=== PATIENT | male | born 1990 | race Hispanic/Latino ===

== ENCOUNTER 2024-07-16 18:15 | Emergency (ER) | payer MEDICAID ==
[2024-07-16 19:53] LABS: BASOPHILS ABSOLUTE AUTO 0.11 K/uL (0.00-0.20); BASOPHILS PERCENT AUTO 1.7 % (0.0-1.0); EOSINOPHILS ABSOLUTE AUTO 0.15 K/uL (0.00-0.45); EOSINOPHILS PERCENT AUTO 2.3 % (0.0-6.0); IMMATURE GRAN ABSOLUTE AUTO 0.01 K/uL (0.00-0.05); IMMATURE GRAN PERCENT AUTO 0.2 % (0.0-0.4); LYMPHOCYTES ABSOLUTE AUTO 3.32 K/uL (1.00-4.80); LYMPHOCYTES PERCENT AUTO 51.7 % (24.0-44.0); MEAN CORPUSCULAR HEMOGLOBIN 31.8 pg (28.0-32.0); MEAN CORPUSCULAR HGB CONC 36.2 g/dL (32.0-36.0); MEAN PLATELET VOLUME 9.9 fL (9.4-12.4); MONOCYTES ABSOLUTE AUTO 0.47 K/uL (0.00-0.80); MONOCYTES PERCENT AUTO 7.3 % (0.0-8.0); NEUTROPHILS ABSOLUTE AUTO 2.36 K/uL (1.80-7.70); NEUTROPHILS PERCENT AUTO 36.8 % (41.0-71.0); PLATELET COUNT,PLT 282 K/uL (150-400); RED BLOOD CELL COUNT 5.34 M/uL (4.52-5.90); WHITE BLOOD CELL COUNT,WBC 6.42 K/uL (3.9-11.3)
[2024-07-16 20:15] LABS: ALBUMIN 4.3 g/dL (3.4-5.0); BILIRUBIN TOTAL 1.5 mg/dL (0.2-1.0); CALCIUM 9.1 mg/dL (8.5-10.1); CARBON DIOXIDE,CO2 26.5 mmol/L (21.0-32.0); CREATININE 1.2 mg/dL (0.8-1.3); POTASSIUM,K 3.3 mmol/L (3.5-5.1); PROTEIN TOTAL,TP 8.5 g/dL (6.4-8.2)
[2024-07-16] MEDS: Sodium Chloride 0.9% 1,000 ML IV ONE (20:20)
[2024-07-16] MEDS: Ondansetron 4 MG/2 ML SDV IVPUSH ONE (20:21)
[2024-07-16] MEDS: Iopamidol 755 MG/ML 500 ML Multipack Bottle IVPUSH ONE (21:40)
== END 2024-07-16 22:24 | disposition left against medical advice (07) ==
LOC: MW.ED 18:15
DX: F10.10 Alcohol abuse, uncomplicated (principal); Z53.20 Procedure and treatment not carried out because of patient's decision for unspecified reasons; Z75.3 Unavailability and inaccessibility of health-care facilities; Y90.8 Blood alcohol level of 240 mg/100 ml or more
CPT/HCPCS: 36415; 74177; 80053; 80307; 83690; 85025; 93005; 96361; 96374; 99285; J2405; J7030; Q9967; 99284

== ENCOUNTER 2024-07-25 00:07 | Emergency (ER) | payer MEDICAID ==
[2024-07-25] MEDS: Sodium Chloride 0.9% 1,000 ML IV SCH (00:55)
[2024-07-25] MEDS: diazePAM 10 MG/2 ML Syringe IVPUSH ONE (00:55)
[2024-07-25 01:04] LABS: BASOPHILS PERCENT AUTO 1.4 % (0.0-1.0); EOSINOPHILS PERCENT AUTO 1.4 % (0.0-6.0); HEMATOCRIT 45.3 % (42.0-52.0); HEMOGLOBIN 16.1 g/dL (14.0-18.0); IMMATURE GRAN ABSOLUTE AUTO 0.02 K/uL (0.00-0.05); IMMATURE GRAN PERCENT AUTO 0.3 % (0.0-0.4); LYMPHOCYTES ABSOLUTE AUTO 4.15 K/uL (1.00-4.80); LYMPHOCYTES PERCENT AUTO 58.8 % (24.0-44.0); MEAN CORPUSCULAR HEMOGLOBIN 31.9 pg (28.0-32.0); MEAN CORPUSCULAR HGB CONC 35.5 g/dL (32.0-36.0); MEAN CORPUSCULAR VOLUME 89.9 fL (83.0-99.0); MEAN PLATELET VOLUME 8.9 fL (9.4-12.4); MONOCYTES ABSOLUTE AUTO 0.76 K/uL (0.00-0.80); MONOCYTES PERCENT AUTO 10.8 % (0.0-8.0); NEUTROPHILS ABSOLUTE AUTO 1.93 K/uL (1.80-7.70); NEUTROPHILS PERCENT AUTO 27.3 % (41.0-71.0); PLATELET COUNT,PLT 337 K/uL (150-400); RED BLOOD CELL COUNT 5.04 M/uL (4.52-5.90); WHITE BLOOD CELL COUNT,WBC 7.06 K/uL (3.9-11.3)
[2024-07-25 01:47] LABS: ALBUMIN 3.9 g/dL (3.4-5.0); BILIRUBIN TOTAL 0.6 mg/dL (0.2-1.0); CALCIUM 8.7 mg/dL (8.5-10.1); CARBON DIOXIDE,CO2 31.3 mmol/L (21.0-32.0); CREATININE 1.4 mg/dL (0.8-1.3); EST CRCL DRUG DOSING (CG) 83.14 mL/min; POTASSIUM,K 3.5 mmol/L (3.5-5.1)
[2024-07-25] MEDS: Ondansetron 4 MG/2 ML SDV IVPUSH ONE (01:50)
== END 2024-07-25 05:17 | disposition home or self-care (01) ==
LOC: MW.ED 00:07
DX: F10.129 Alcohol abuse with intoxication, unspecified (principal); E86.0 Dehydration; R11.10 Vomiting, unspecified
CPT/HCPCS: 36415; 80053; 80307; 85025; 96361; 96374; 96375; 99284; J2405; J3360; J7030; 99283

== ENCOUNTER 2024-08-28 14:51 | Inpatient (IN) | payer SELFPAY ==
[2024-08-28] MEDS: Folic Acid 1 MG/0.2 ML UD Syringe IV STA (15:14)
[2024-08-28] MEDS: Thiamine 200 MG/2 ML MDV IVPUSH ONE (15:14)
[2024-08-28 15:20] LABS: BASOPHILS ABSOLUTE AUTO 0.13 K/uL (0.00-0.20); BASOPHILS PERCENT AUTO 1.6 % (0.0-1.0); EOSINOPHILS ABSOLUTE AUTO 0.10 K/uL (0.00-0.45); EOSINOPHILS PERCENT AUTO 1.3 % (0.0-6.0); IMMATURE GRAN ABSOLUTE AUTO 0.01 K/uL (0.00-0.05); IMMATURE GRAN PERCENT AUTO 0.1 % (0.0-0.4); LYMPHOCYTES ABSOLUTE AUTO 3.40 K/uL (1.00-4.80); LYMPHOCYTES PERCENT AUTO 42.7 % (24.0-44.0); MEAN PLATELET VOLUME 9.2 fL (9.4-12.4); MONOCYTES ABSOLUTE AUTO 0.40 K/uL (0.00-0.80); MONOCYTES PERCENT AUTO 5.0 % (0.0-8.0); NEUTROPHILS ABSOLUTE AUTO 3.92 K/uL (1.80-7.70); NEUTROPHILS PERCENT AUTO 49.3 % (41.0-71.0); NRBC ABSOLUTE 0.00 K/uL (0.00-0.02); NRBC PERCENT 0.0 /100WBC (0.0-0.2); PLATELET COUNT,PLT 264 K/uL (150-400); RED BLOOD CELL COUNT 5.09 M/uL (4.52-5.90); WHITE BLOOD CELL COUNT,WBC 7.96 K/uL (3.9-11.3)
[2024-08-28] MEDS: PHENobarbital Sodium 130 MG/ML SDV IV ONE (15:31)
[2024-08-28 15:55] LABS: A/G RATIO 1.1 (0.9-1.6); ALANINE AMINOTRANSFERASE,ALT 42 IU/L (14-63); ASPARTATE AMNIOTRANSFERASE,AST 202 IU/L (15-37); BILIRUBIN TOTAL 2.1 mg/dL (0.2-1.0); BLOOD UREA NITROGEN,BUN 9 mg/dL (7.0-18.0); CARBON DIOXIDE,CO2 21.0 mmol/L (21.0-32.0); CHLORIDE,CL 93 mmol/L (98-107); CREATININE 1.1 mg/dL (0.8-1.3); GLUCOSE RANDOM 83 mg/dL (74-106); POTASSIUM,K 3.8 mmol/L (3.5-5.1); PROTEIN TOTAL,TP 7.9 g/dL (6.4-8.2); SODIUM,NA 135 mmol/L (136-148)
[2024-08-28 15:57] LABS: ESTIMATED GFR 91 mL/min (>60); ETHANOL BLOOD MEDICAL 370 mg/dL
[2024-08-28 16:19] LABS: APPEARANCE,URINE CLEAR; GLUCOSE,URINE NEGATIVE (NEGATIVE); OCCULT BLOOD,URINE TRACE-LYSED (NEGATIVE)
[2024-08-28 16:29] LABS: AMPHETAMINES SCREEN, URINE NEGATIVE (CUTOFF=500); BUPRENORPHINE SCREEN,URINE NEGATIVE (CUTOFF=10); EPITHELIAL CELLS,URINE RARE (NONE-FEW); METHADONE SCREEN, URINE NEGATIVE (CUTOFF=200); METHAMPHETAMINES SCREEN, URINE NEGATIVE (CUTOFF=500); OXYCODONE SCREEN,URINE NEGATIVE (CUT0FF=100); PCP SCREEN,URINE NEGATIVE (CUTOFF=25); THC SCREEN,URINE 20 NG/ML NEGATIVE (CUTOFF=50)
[2024-08-28] MEDS: Ondansetron 4 MG/2 ML SDV IVPUSH ONE (17:12)
[2024-08-28] MEDS ORDERED: PHENobarbitaL sodium 260 MG in Sodium Chloride 0.9% 100 ML IV PRN ×2 (20:26→20:58)
[2024-08-28] MEDS: Ondansetron 4 MG/2 ML SDV IVPUSH PRN (20:51)
[2024-08-28] MEDS: Ondansetron 4 MG/2 ML SDV ONE (20:52)
[2024-08-28] MEDS ORDERED: Sodium Chloride 0.9% 2.5 ML Syringe FLUSH PRN (20:55)
[2024-08-28] MEDS ORDERED: Sodium Chloride 0.9% 10 ML Syringe FLUSH PRN (20:55)
[2024-08-28] MEDS ORDERED: Ondansetron 4 MG/2 ML SDV IVPUSH PRN (20:55)
[2024-08-28] MEDS: PHENobarbital Sodium 130 MG/ML SDV IVPUSH PRN (20:58)
[2024-08-28] MEDS ORDERED: PHENobarbital Sodium 130 MG/ML SDV IVPUSH PRN (20:58)
[2024-08-28] MEDS: Pantoprazole 40 MG in Sodium Chloride 0.9% 10 ML IVPUSH SCH (22:19)
[2024-08-29] MEDS: Promethazine 25 MG/ML SDV IM ONE (03:26)
[2024-08-29 05:44] LABS: BASOPHILS ABSOLUTE AUTO 0.06 K/uL (0.00-0.20); BASOPHILS PERCENT AUTO 0.8 % (0.0-1.0); EOSINOPHILS ABSOLUTE AUTO 0.10 K/uL (0.00-0.45); EOSINOPHILS PERCENT AUTO 1.3 % (0.0-6.0); IMMATURE GRAN ABSOLUTE AUTO 0.01 K/uL (0.00-0.05); IMMATURE GRAN PERCENT AUTO 0.1 % (0.0-0.4); LYMPHOCYTES ABSOLUTE AUTO 2.29 K/uL (1.00-4.80); LYMPHOCYTES PERCENT AUTO 29.6 % (24.0-44.0); MEAN PLATELET VOLUME 9.9 fL (9.4-12.4); MONOCYTES ABSOLUTE AUTO 0.47 K/uL (0.00-0.80); MONOCYTES PERCENT AUTO 6.1 % (0.0-8.0); NEUTROPHILS ABSOLUTE AUTO 4.81 K/uL (1.80-7.70); NEUTROPHILS PERCENT AUTO 62.1 % (41.0-71.0); NRBC ABSOLUTE 0.00 K/uL (0.00-0.02); NRBC PERCENT 0.0 /100WBC (0.0-0.2); PLATELET COUNT,PLT 168 K/uL (150-400); RED BLOOD CELL COUNT 4.07 M/uL (4.52-5.90); WHITE BLOOD CELL COUNT,WBC 7.74 K/uL (3.9-11.3)
[2024-08-29 06:07] LABS: A/G RATIO 1.1 (0.9-1.6); ALANINE AMINOTRANSFERASE,ALT 35 IU/L (14-63); ASPARTATE AMNIOTRANSFERASE,AST 155 IU/L (15-37); BILIRUBIN TOTAL 2.1 mg/dL (0.2-1.0); BLOOD UREA NITROGEN,BUN 6 mg/dL (7.0-18.0); CARBON DIOXIDE,CO2 24.0 mmol/L (21.0-32.0); CHLORIDE,CL 96 mmol/L (98-107); CREATININE 1.1 mg/dL (0.8-1.3); ESTIMATED GFR 91 mL/min (>60); GLUCOSE RANDOM 112 mg/dL (74-106); POTASSIUM,K 3.8 mmol/L (3.5-5.1); PROTEIN TOTAL,TP 6.4 g/dL (6.4-8.2); SODIUM,NA 133 mmol/L (136-148)
[2024-08-29] MEDS: Thiamine 200 MG/2 ML MDV IVPUSH SCH (08:38)
[2024-08-29] MEDS: Magnesium Sulfate 2 GM/50 mL 2 GM in Premix Bag 1 BAG IV ONE (09:56)
[2024-08-30] MEDS: Magnesium Sulfate 2 GM/50 mL 2 GM in Premix Bag 1 BAG IV ONE (09:38)
== END 2024-08-30 11:46 | disposition home or self-care (01) | DRG 897 ==
LOC: MW.ED 14:51 → OBSVTOIN 19:16 → MW.MS 19:16
PROVIDERS: ADMIT Family Medicine; ATTEND Family Medicine
PROC: HZ2ZZZZ Detoxification Services for Substance Abuse Treatment (ICD-10-PCS; principal; 2024-08-28)
DX: F10.139 Alcohol abuse with withdrawal, unspecified (principal); F10.129 Alcohol abuse with intoxication, unspecified; R56.9 Unspecified convulsions; E86.0 Dehydration; R74.01 Elevation of levels of liver transaminase levels; Z79.899 Other long term (current) drug therapy; Z90.49 Acquired absence of other specified parts of digestive tract
CPT/HCPCS: 36415; 80053; 80305; 80307; 81001; 83690; 83735; 84100; 85025; 99285; A9270-GY; J2405; J2470; J2550; J2560; J2765; J3411; J3475; J3490; J7030